=== PATIENT | male | born 1980 | race Caucasian/White ===

== ENCOUNTER → 2021-06-25 | Outpatient (CLI) | payer OTHER ==
--- NOTE | 2021-06-25 10:47 | MR ---
EXAMINATION TYPE: MR lumbar spine wo con DATE OF EXAM: 06/25/2021 COMPARISON: NONE HISTORY: Low back pain down left side TECHNIQUE: T1 and T2 axial and sagittal images of the lumbar spine are submitted. FINDINGS: There is no abnormal signal seen within the visualized spinal cord or paraspinal soft tissu es. Nonspecific heterogeneous marrow signal with multiple suspected vertebral body hemangioma. At L1-2 there is no evidence of degenerative disc disease, disc herniation, canal stenosis or foramin al encroachment. At L2-3 there is no evidence of degenerative disc disease, disc herniation or canal stenosis. No fora kenneth encroachment. At L3-4 there is mild disc desiccation with a small focal central disc protrusion and mild effacement of thecal sac. No canal stenosis or foraminal encroachment. Suggestion of small annular tear. At L4-5 there is disc desiccation with mild broad-based central disc bulging. Neural foramina remain patent. Suggestion of annular tear. At L5-S1 there is degenerative disc disease with no focal herniation, canal stenosis or foraminal enc roachment. IMPRESSION: 1. Multilevel degenerative disc disease with annular tear and broad-based disc bulging or protrusion L4-5. 2. Annular tear and focal small disc central protrusion L3-L4 with mild effacement of thecal sac but no canal stenosis or foraminal encroachment. 3. Vertebral body hemangioma.
== END | disposition home or self-care (01) ==
LOC: RADMRIMAIN 09:02
PROVIDERS: ATTEND Orthopaedic Surgery
DX: M51.37 Other intervertebral disc degeneration, lumbosacral region (principal); M51.26 Other intervertebral disc displacement, lumbar region; D18.09 Hemangioma of other sites
CPT/HCPCS: 72148

== ENCOUNTER → 2021-06-25 | Outpatient (CLI) | payer OTHER ==
--- NOTE | 2021-06-25 09:14 | US ---
EXAMINATION TYPE: US abdomen complete DATE OF EXAM: 06/25/2021 COMPARISON: NONE CLINICAL HISTORY: R10.114 Rt upper quadrant pain. RUQ pain after meals while taking Motrin, symptoms have decreased now; MRI today per patient. EXAM MEASUREMENTS: Liver Length: 12.1 cm Gallbladder Wall: 0.1 cm CBD: 0.3 cm Spleen: 8.2 cm Right Kidney: 10.3 x 5.6 x 4.1 cm Left Kidney: 9.8 x 6.1 x 4.7 cm Pancreas: wnl Liver: wnl Gallbladder: wnl Evidence for sonographic Villalpando's sign: no CBD: wnl Spleen: wnl Right Kidney: No hydronephrosis or masses seen Left Kidney: No hydronephrosis or masses seen Upper IVC: wnl Abd Aorta: wnl The visualized liver is homogenous. The intrahepatic portion of the IVC and visualized abdominal aor ta are within normal limits. There is no evidence of cholelithiasis. Common bile duct is unremarkab le. The visualized portions of the pancreas are homogenous. The spleen is unremarkable. Kidneys ar e symmetric and free of hydronephrosis. No renal lesions are seen. IMPRESSION: No acute findings are evident.
== END | disposition home or self-care (01) ==
LOC: RADUSWWP 08:10
PROVIDERS: ATTEND Family Medicine
DX: R10.11 Right upper quadrant pain (principal)
CPT/HCPCS: 76700

== ENCOUNTER → 2021-08-23 | Outpatient (CLI) | payer OTHER ==
--- NOTE | 2021-08-23 09:12 | P.CON ---
Consult Note - . Consult date: 08/23/21 Assessment/Plan:: HISTORY OF PRESENT ILLNESS: 40 -year-old male as a referral from Dr. Goodman tariq presents today with lower back pain secondary to DDD, disc bulges and facet arthropathy for evaluation. Patient states his lower back pain has been bothering him for 5 years due to an injury then a repeat injury lifting weights. Lower back pain is sharp, stiff in character, 4 out of 10 in intensity and accompanied with spasms occasionally and radiates down the left lower extremity. Pain is provoked with sitting and standing for periods of 30 minutes or more as well as laying supine without changing positions. Pain is relieved with medications (ibuprofen 800 mg), ice, repositioning, physical therapy in June 2021 of 6 sessions, daily home exercise regimen and laying supine with repositioning. PMH: Alopecia, OA PSH: Denies SH: Former smoker (Quit 2013), Rare ETOH use, no illicit drug use FH: Non contributory All: NKDA Meds: See list REVIEW OF ORGAN SYSTEMS: CONSTITUTIONAL: No fevers or chills. No recent weight loss. HEENT: No visual acuity loss, eye pain, difficulties with hearing. No nosebleeds. No difficulty swallowing. RESPIRATORY: Denies any troubles with breathing or dyspnea on exertion. CARDIOVASCULAR: Denies any chest pain, palpitations, or recent heart attacks. GASTROINTESTINAL: Denies fatty food intolerance. Has change in bowel habits and gas bloat. GENITOURINARY: Denies any blood in urine. Has increased urinary frequency. NEUROLOGICAL: + numbness and tingling along the distal extremities. No seizure disorders or headaches. MUSCULOSKELETAL: + back pain SKIN: No skin cancer. No rash. PSYCHIATRIC: Denies current depression or suicidal thoughts. ENDOCRINE: Denies current thyroid disorders. Denies any blood sugar glucose intolerance. HEME/LYMPHATIC: Denies any lumps and bumps around the neck. History of deep venous thrombosis. ALLERGY/IMMUNOLOGY: No immunoglobulin therapy. No immune deficiencies. BREAST: Denies current breast lumps, pain or nipple discharge. Physical Examinations : Constitutional : Cooperative , not in acute distress . HEENT: Neck supple. No Lymphadenopathy. Normal thyroid size . Eyes no ptosis , no icterus, no photophobia . Hearing intact. Normal oropharynx. No Thrush. Respiratory : Chest clear to auscultations bilaterally. No wheezing. No rhonchi. Cardiovascular : Regular rate and rhythm , S1 / S2. No S3 . No S4. Gastrointestinal : Abdomen soft. No tenderness. Bowel sounds x 4. No organomegaly . Genitourinary : Deferred. Neurologic : Cranial nerve II to XII intact. No focal neurological deficits. Psychiatric : alert & oriented x 3. Matching mood & appropriate affect. Judgment & insight intact. Lymphatic No Lymphadenopathy. Musculoskeletal : Cervical Spine Motor strength in the deltoid and biceps: Normal right side. Normal Left side Motor strength biceps and the wrist extensors: Normal right side . Normal left side Motor strength in the triceps muscle: Normal right side. Normal left side Deep tendon reflexes: Normal at the biceps. Normal at Brachioradialis. Normal at triceps Cervical facet loading test: positive bilaterally Spurling test: positive bilaterally Neck distraction test: positive bilaterally Willie sign: positive bilaterally Lumbar spine Motor strength lower extremities ,thigh and legs 5/5 Right side , 5/5 Left side Deep tendon reflexes : Normal Knee Jerk. Normal Ankle Jerk Vertebral body tenderness over L4 Lumbar facet Loading Test: positive Right / positive Left Range of motion of the lumbar spine Flexion 30 degrees, extension 10 degrees Straight Leg Raise test: Left/ Right p ositive at degree Cornelio test: positive right / positive left. Severe tenderness over the Sacroiliac joint on the Right / Left sides Gaenslen test: positive bilaterally Seated flexion test: positive bilaterally. Imaging: MRI without contrast of the lumbar spine from 06/25/21 reviewed Assessment/ Plan : Lumbar Spondylosis, Lumbar facet arthropathy Recommendation of CAMILLAI L4-L5. May need a series of injections, up to 3 within a six-month period, for optimal pain relief. Risks, benefits of procedure discussed and patient verbalized understanding. Denies aspirin or anti- coagulant use or medical history of diabetes. All questions answered. I have spent greater than 50 minutes on patient care today. Dr Kuhn was available by phone for the evaluation of this patient. The time was used to review the medical records including relevant urine studies and Prescription history (MAPs), review of the available imaging, evaluation and examination of the patient, coordination of care with the medical staff and if applicable referring physicians, as well as creation of the medical record
[2021-08-23 09:23] VITALS: BP 134/77; PULSE 62; RESP 18; TEMP 98.3
== END ==
LOC: PNWHC3 08:31
PROVIDERS: ATTEND Specialist
DX: M51.36 Other intervertebral disc degeneration, lumbar region (principal); M47.816 Spondylosis without myelopathy or radiculopathy, lumbar region; M19.90 Unspecified osteoarthritis, unspecified site; Z87.891 Personal history of nicotine dependence
CPT/HCPCS: 99211

== ENCOUNTER → 2021-08-24 | Outpatient (CLI) | payer OTHER ==
--- NOTE | 2021-08-24 19:19 | MR ---
EXAMINATION TYPE: MR knee RT wo con DATE OF EXAM: 08/24/2021 COMPARISON: Outside radiograph 03/15/2021 HISTORY: 40-year-old male and 2 5.561, right knee pain TECHNIQUE: Multiplanar, multisequence imaging of the right knee is performed without IV contrast. FINDINGS: The ACL, PCL, MCL, and LCL complex is intact. There is degenerative signal noted within the body of the medial meniscus. There is an oblique tear o f the posterior horn contacting the tibial surface. Overall medial compartment articular cartilage vo lume is maintained. Partially discoid lateral meniscus without tear. Overall lateral compartment articular cartilage volu me is maintained. Patellofemoral compartment articular cartilage is maintained. Extensor mechanism is intact. There is some edema within the suprapatellar fat pad. Small knee joint effusion without any significant Escobar's cyst. Only trace fluid extends between the tendons of the semimembranosus and medial head gastrocnemius. Normal popliteal artery anatomy and normal muscle bulk. No suspicious bone marrow replacement. IMPRESSION: 1. Oblique undersurface tear posterior horn medial meniscus. Degenerative signal in the body of the m edial meniscus. 2. Partially discoid lateral meniscus without tear. 3. Edema within the suprapatellar fat pad. This is nonspecific but may be seen in the setting of fat pad impingement syndrome. Clinically correlate.
== END | disposition home or self-care (01) ==
LOC: RADMRIMAIN 11:18
PROVIDERS: ATTEND Orthopaedic Surgery
DX: S83.241A Other tear of medial meniscus, current injury, right knee, initial encounter (principal); M23.300 Other meniscus derangements, unspecified lateral meniscus, right knee; M79.4 Hypertrophy of (infrapatellar) fat pad

== ENCOUNTER 2021-09-23 07:57 | Day surgery (SDC) | payer OTHER ==
[2021-09-23 08:25] VITALS: TEMP 98.2
[2021-09-23] MEDS ORDERED: methylPREDNISolone ACETATE 80 MG/ML 1 ML VIAL ONE (08:45)
[2021-09-23] MEDS ORDERED: IOPAMIDOL M200 10 ML VIAL ONE (08:45)
--- NOTE | 2021-09-23 08:59 | P.PCN ---
Date of Procedure: 09/23/21 Procedure(s) Performed: PREOPERATIVE DIAGNOSIS: 1- Lumbar Degenerative Disc Diseases 2-Lumbar Radiculopathy POSTOPERATIVE DIAGNOSIS: Same as preop diagnosis. PROCEDURE 1. Lumbar epidural steroid injection under fluoroscopic guidance at the L4-5 level. (Fluoroscopy imaging was available in radiology department) 2. Lumbar epidurogram. ANESTHESIA: Local with 1% lidocaine 3 ml only. EBL: Minimal PROCEDURE INDICATION: The patient with low back pain and radiculitis symptoms unresponsive to conservative treatment. Fluoroscopy was used to optimize visualization of the needle placement and to maximize safety. PROCEDURE DESCRIPTION / TECHNIQUE: The patient was seen and identified in the preoperative area. Risks, benefits, complications including but not limited to infections ,bleeding ,allergic reaction to the medications ,nerve damage and not complete pain releife , and alternatives were discussed with the patient. The patient agreed to proceed with the procedure and signed the consent. IV was started, and vital signs were stable. Patient was taken to the OR and time out was completed. The patient was placed in the prone position on procedure table and a pillow was placed under the abdomen to reduce lumbar lordosis. The lumbosacral area was prepped and draped in the usual sterile fashion.ere closely monitored during the procedure. Vital signs was monitered during the entire procedure. Using anterior-posterior fluoroscopy, the L4-5 interlaminar space was identified and the skin over this site was marked and then infiltrated with 1% lidocaine subcutaneously. Subsequently, a 20-gauge Tuohy epidural needle was inserted and advanced toward the epidural space using the ``Loss of resistance technique and guided by AP and lateral fluoroscopy. The correct needle position in the epidural space was verified with the injection of 2 mL of the water soluble contrast dye Isovue 200 contrast and observing an excellent epidurogram with the epidural spread of the dye, after negative aspiration for blood and CSF and in the absence of paresthesias. Again after negative aspiration, a 6 ml mixture containing 80 mg of Depo-medrol , and 2 ml of preservative free Normal Saline, and 2 ml of preservative free lidocaine 1% solution was injected and a washout of epidurogram was seen. Needle was withdrawn intact, skin was cleansed, and bandages were applied. COMPLICATIONS: None DISPOSITION / PLANS: The patient was placed in a supine position and transferred to the recovery area in a stable condition for observation. There was no evidence of lower extremity motor or sensory deficit after the procedure. Patient was discharged from the recovery room after meeting discharge criteria. Home discharge instructions were given to the patient by the staff. The patient was reexamined prior to discharge. The patient will schedule a follow up in the clinic in 2-4 weeks.
[2021-09-23 09:18] VITALS: BP 134/82; PULSE 57; RESP 17
--- NOTE | 2021-09-23 12:29 | FL ---
Fluoroscopy HISTORY: Pain 2 seconds fluoroscopy time supplied to the referring clinician. 1 intraoperative C-arm images docume nt the procedure. See dictated report from anesthesia.
== END 2021-09-23 09:30 | disposition home or self-care (01) ==
LOC: ORPAIN 07:57
PROVIDERS: ATTEND Specialist
DX: M51.16 Intervertebral disc disorders with radiculopathy, lumbar region (principal)
CPT/HCPCS: 62323; J1040; Q9966

== ENCOUNTER → 2021-10-21 | Outpatient (CLI) | payer OTHER ==
[2021-10-21 10:11] VITALS: BP 143/83; PULSE 68; RESP 18; TEMP 98.1
--- NOTE | 2021-10-21 10:31 | P.PAINPG ---
PQRS Measure Charge Sheet Comment: A 40 yr old male with a history of severe and chronic low back pain secondary to lumbar degenerative disc diseases and lumbar spondylosis with facet arthropathy presents today for evaluation s/p LESI L4-L5. 70% pain relif x 2 wks s/p procedure. Pain level is 3/10 in intensity, constant, sharp/ shooting towards L side of his back and down the LLE. Pain is provoked by twisting at the waist, lifting above the head. Pain is alleviated with PT completed June 2021, guided stretches at home, medications, laying supine. Interventional pain procedures completed include LESI L4-L5 x 1 Patient is currently on Motrin Patient denies any side effects of the medication(s), denies excessive drowsiness or sleepiness, denies suicidal ideation and reports that the current pain medication is helping to control the pain and improve activities of daily living. Patient denies any motor or sensory deficits. Patient denies any fever or night sweats, denies any change in the bowel movements or urination. Physical Examination: -Constitutional: Cooperative. Not in acute distress . - Neurologic: Cranial nerve II to XII intact. No focal neurological deficits. - Psychatric: Alert & oriented x 3. Matching mood & appropriate affect. Judgment and insight intact. - Musculoskeletal: Cervical spine: Muscle bulk/ tone/ strength in the bilateral upper extremities normal Vertebral body tenderness to palpation over Spurling test positive Distraction test positive Facet loading test positive Thoracic spine Muscle bulk / tone/ strength in the bilateral paraspinal muscles normal Vertebral body tender to palpation over Facet loading test positive Lumbar spine: Motor bulk/ tone/ strength lower extremities , thigh and legs : 5/5 Deep tendon reflexes : Normal Knee Jerk. Normal Ankle Jerk . Vertebral body tenderness to palpation over L4 Lumbar Facet Loading Test positive Straight Leg Raise: positive at 30 degrees right side/ left side Gaenslen's Test positive Sacral spine : Severe tenderness over the Sacroiliac joint: right side / left side Range of motion: Flexion of the lumbar spine <60 degrees Range of motion: Extension of the lumbar spine <20 degrees Gaenslen's Test positive Shilo's Test positive Cornelio test: positive right side / left side Thigh Thrust Test Sacral Thrust Test Assessment and plan: Chronic low back pain secondary to lumbar degenerative disc disease , lumbar spondylosis with facet arthropathy without myelopathy Recommendation of LESI L4-L4 #2. May need a series of injections, up to 3 within a 6 mo period, for optimal pain relief. Risks, benefits of procedure discussed and pt verbalized understanding. Denies anticoagulant use or medical history of diabetes. All patient questions answered MAPS reviewed and it was appropriate. I have spent less than 30 minutes on patient care today. Dr Kuhn was available by phone for the evaluation of this patient. The time was used to review the medical records including relevant urine studies and Prescription history (MAPs), review of the available imaging, evaluation and examination of the patient, coordination of care with the medical staff and if applicable referring physicians, as well as creation of the medical record PQRS Narrative: Hx Alcohol Use (MH) Yes: occasionally Home Medications: Ambulatory Orders Citalopram Hydrobromide [CeleXA] 1 tab PO DAILY 09/23/21 Finaseride 1 mg PO DAILY 09/23/21 Controlled Substance Measures - Controlled Substance Measures Is patient prescribed a controlled substance at discharge?: No
== END ==
LOC: PNWHC3 08:32
PROVIDERS: ATTEND Specialist
DX: M51.36 Other intervertebral disc degeneration, lumbar region (principal); M47.816 Spondylosis without myelopathy or radiculopathy, lumbar region; G89.29 Other chronic pain
CPT/HCPCS: 99211

== ENCOUNTER 2021-12-23 12:12 | Day surgery (SDC) | payer OTHER ==
[~2021-12-23 12:12] MED LIST: LACTATED RINGERS 1,000 ML IV SCH; LIDOCAINE 1% (10MG/ML) FOR IV START INTRADERMA PRN
[2021-12-23 12:57] VITALS: TEMP 97.5
[2021-12-23] MEDS ORDERED: IOPAMIDOL M200 10 ML VIAL ONE (13:50)
[2021-12-23] MEDS ORDERED: methylPREDNISolone ACETATE 80 MG/ML 1 ML VIAL ONE (13:50)
--- NOTE | 2021-12-23 14:00 | P.PCN ---
Date of Procedure: 12/23/21 Procedure(s) Performed: PREOPERATIVE DIAGNOSIS: 1- Lumbar Degenerative Disc Diseases 2-Lumbar Radiculopathy POSTOPERATIVE DIAGNOSIS: Same as preop diagnosis. PROCEDURE 1. Lumbar epidural steroid injection under fluoroscopic guidance at the L4-5 level. (Fluoroscopy imaging was available in radiology department) 2. Lumbar epidurogram. ANESTHESIA: Local with 1% lidocaine 3 ml only. EBL: Minimal PROCEDURE INDICATION: The patient with low back pain and radiculitis symptoms unresponsive to conservative treatment. Fluoroscopy was used to optimize visualization of the needle placement and to maximize safety. PROCEDURE DESCRIPTION / TECHNIQUE: The patient was seen and identified in the preoperative area. Risks, benefits, complications including but not limited to infections ,bleeding ,allergic reaction to the medications ,nerve damage and not complete pain releife , and alternatives were discussed with the patient. The patient agreed to proceed with the procedure and signed the consent. and vital signs were stable. Patient was taken to the OR and time out was completed. The patient was placed in the prone position on procedure table and a pillow was placed under the abdomen to reduce lumbar lordosis. The lumbosacral area was prepped and draped in the usual sterile fashion.ere closely monitored during the procedure. Vital signs was monitered during the entire procedure. Using anterior-posterior fluoroscopy, the L4-5 interlaminar space was identified and the skin over this site was marked and then infiltrated with 1% lidocaine subcutaneously. Subsequently, a 20-gauge Tuohy epidural needle was inserted and advanced toward the epidural space using the ``Loss of resistance technique and guided by AP and lateral fluoroscopy. The correct needle position in the epidural space was verified with the injection of 2 mL of the water soluble contrast dye Isovue 200 contrast and observing an excellent epidurogram with the epidural spread of the dye, after negative aspiration for blood and CSF and in the absence of paresthesias. Again after negative aspiration, a 6 ml mixture containing 80 mg of Depo-medrol , and 2 ml of preservative free Normal Saline, and 2 ml of preservative free lidocaine 1% solution was injected and a washout of epidurogram was seen. Needle was withdrawn intact, skin was cleansed, and bandages were applied. COMPLICATIONS: None DISPOSITION / PLANS: The patient was placed in a supine position and transferred to the recovery area in a stable condition for observation. There was no evidence of lower extremity motor or sensory deficit after the procedure. Patient was discharged from the recovery room after meeting discharge criteria. Home discharge instructions were given to the patient by the staff. The patient was reexamined prior to discharge. The patient will schedule a follow up in the clinic in 2-4 weeks.
[2021-12-23 14:05] VITALS: RESP 18
--- NOTE | 2021-12-23 14:12 | FL ---
EXAMINATION TYPE: FL guided pain mgmt statistic DATE OF EXAM: 12/23/2021 HISTORY: Fluoroscopy time 2 seconds of fluoroscopy provided. IMPRESSION: 1. Fluoroscopy time.
[2021-12-23 14:18] VITALS: BP 126/75; PULSE 52
== END 2021-12-23 14:19 | disposition home or self-care (01) ==
LOC: ORPAIN 12:12
PROVIDERS: ATTEND Specialist
DX: M51.16 Intervertebral disc disorders with radiculopathy, lumbar region (principal); M54.50 Low back pain, unspecified
CPT/HCPCS: 62323; J1040; Q9966

== ENCOUNTER → 2022-01-13 | Outpatient (CLI) | payer OTHER ==
[2022-01-13 09:34] VITALS: BP 134/76; PULSE 76; RESP 18; TEMP 98.6
--- NOTE | 2022-01-13 14:49 | P.PAINPG ---
Objective - Vital Signs Vital signs: Intake & Output 01/12/22 01/13/22 01/13/22 18:59 06:59 18:59 Weight 63.503 kg PQRS Measure Charge Sheet Comment: A 41 yr old male with a history of severe and chronic low back pain secondary to lumbar degenerative disc diseases and lumbar spondylosis with facet arthropathy without myelopathy presents today for evaluation s/p GARCIA L4-L5. Pt states he experienced 50% pain relief x 3 wks s/p procedure. Pain level is currently at 2/10 in intensity, constant, lower lumbar spine, sharp in character w shooting towards the BL buttocks and BLEs. Pain is provoked as high as 5/10 by lifting, sitting/standing for periods of 30 min or more. Pain is alleviated with PT x 6 wks in Jun 2021, home guided exercises, heat, ice, medications (Ibu), repositioning and rest. Interventional pain procedures completed include GARCIA L4-L5 Patient is currently on Ibuprofen Patient denies any side effects of the medication(s), denies excessive drowsiness or sleepiness, denies suicidal ideation and reports that the current pain medication is helping to control the pain and improve activities of daily living. Patient denies any motor or sensory deficits. Patient denies any fever or night sweats, denies any change in the bowel movements or urination. Physical Examination: -Constitutional: Cooperative. Not in acute distress . - Neurologic: Cranial nerve II to XII intact. No focal neurological deficits. - Psychatric: Alert & oriented x 3. Matching mood & appropriate affect. Judgment and insight intact. - Musculoskeletal: Cervical spine: Muscle bulk/ tone/ strength in the bilateral upper extremities normal Vertebral body tenderness to palpation over Spurling test positive Distraction test positive Facet loading test positive Thoracic spine Muscle bulk / tone/ strength in the bilateral paraspinal muscles normal Vertebral body tender to palpation over Facet loading test positive Lumbar spine: Motor bulk/ tone/ strength lower extremities , thigh and legs : 5/5 Deep tendon reflexes : Normal Knee Jerk. Normal Ankle Jerk . Vertebral body tenderness to palpation over BL paraspinal TTP and palpable spasms over L2-L5 Lumbar Facet Loading Test positive Straight Leg Raise: positive at 30 degrees right side/ left side Gaenslen's Test positive Sacral spine : Severe tenderness over the Sacroiliac joint: right side / left side Range of motion: Flexion of the lumbar spine <60 degrees Range of motion: Extension of the lumbar spine <20 degrees Gaenslen's Test positive Shilo's Test positive Cornelio test: positive right side / left side Thigh Thrust Test Sacral Thrust Test Assessment and plan: Chronic low back pain secondary to lumbar degenerative disc disease , lumbar spondylosis with facet arthropathy without myelopathy Recommendation of BL TPIs of L1-S1. May need a series , up to every 2-3 mo, for optimal pain relief. Risks, benefits of procedure discussed and pt verbalized understanding. Admits to anticoagulant use or medical history of diabetes. Protocol for discontinuation/ continuation of medications li proced ure discussed. All patient questions answered I have spent less than 30 minutes on patient care today. Dr Kuhn was available by phone for the evaluation of this patient. The time was used to review the medical records including relevant urine studies and Prescription history (MAPs), review of the available imaging, evaluation and examination of the patient, coordination of care with the medical staff and if applicable referring physicians, as well as creation of the medical record PQRS Narrative: Pain Intensity [Lower Back] 3 Hx Alcohol Use (MH) Yes: occasionally Home Medications: Ambulatory Orders Citalopram Hydrobromide [CeleXA] 10 mg PO DAILY 09/23/21 Finasteride 1 mg PO DAILY 09/23/21 Controlled Substance Measures - Controlled Substance Measures Is patient prescribed a controlled substance at discharge?: No
== END ==
LOC: PNWHC3 09:12
PROVIDERS: ATTEND Specialist
DX: M51.36 Other intervertebral disc degeneration, lumbar region (principal); M47.816 Spondylosis without myelopathy or radiculopathy, lumbar region; G89.29 Other chronic pain; F10.90 Alcohol use, unspecified, uncomplicated
CPT/HCPCS: 99211

== ENCOUNTER 2022-02-15 06:16 | Day surgery (SDC) | payer OTHER ==
[2022-02-15 06:36] VITALS: RESP 16; TEMP 97.3
[2022-02-15] MEDS ORDERED: ACETAMINOPHEN TAB 500 MG TAB ONE (06:38)
[2022-02-15] MEDS ORDERED: ACETAMINOPHEN TAB 500 MG TAB PO ONE (06:39)
[2022-02-15] MEDS ORDERED: ROPIVACAINE 5 MG/ML 20 ML AMPULE ONE (07:03)
[2022-02-15] MEDS ORDERED: TRIAMCINOLONE ACETONIDE 40 MG/ML 1 ML VIAL ONE (07:03)
[2022-02-15] MEDS ORDERED: LACTATED RINGERS 1,000 ML IV SCH (07:15)
--- NOTE | 2022-02-15 07:19 | P.PCN ---
Date of Procedure: 02/15/22 Description of Procedure: Pre and postop diagnosis: Myofascial pain syndrome Procedure: Trigger point injections X 6 Muscle group X left side lumbar paraspinals, and iliocostalis lumborum Surgeon: Glen Kolb Anesthesia: None Complications: None Estimated blood loss: None Specimen removed: None Procedure indications: Patient had a history of myofascial pain syndrome. Patient tried conservative therapy. Came here for intervention procedure for better pain relief. he was scheduled for bilateral lumbar trigger point injection, but on examination, and patient agreed that his pain is only on left side of the lumbar area. no pain on right side of the lumbar area at this time. Procedure description: Patient was seen and identified in the holding area risk benefits competitions alternative discussed with the patient. Patient agreed to proceed for the procedure signed the consent. Patient taken to the procedure area. Timeout was completed. A total number of 6 - trigger point area was marked with a sterile marker. After ChloraPrep used to clean the area. Critical pause was taken. Using 25-gauge 1-1/[address] b[address]. Needle entered in each market site 2 mL of block solution injected at each level. The block solution containing 11 ml of 0.5% preservative-free ropivacaine with Kenlog 40 MG. Needle removed intact skin cleaned and Band-Aid applied. Patient tolerated the procedure well. Disposition: Patient discharge home after meeting the discharge criteria from the recovery. Patient scheduled to follow up with the pain clinic in 4 weeks for follow-up visit.
[2022-02-15 07:31] VITALS: BP 133/83; PULSE 61
== END 2022-02-15 07:36 | disposition home or self-care (01) ==
LOC: ORPAIN 06:16
DX: M79.18 Myalgia, other site (principal); M54.50 Low back pain, unspecified; F41.8 Other specified anxiety disorders; F17.210 Nicotine dependence, cigarettes, uncomplicated; Z79.899 Other long term (current) drug therapy
CPT/HCPCS: 20553; J3301; J2795

== ENCOUNTER → 2022-03-10 | Outpatient (CLI) | payer OTHER ==
[2022-03-10 10:25] VITALS: BP 137/75; PULSE 67; RESP 16; TEMP 98
--- NOTE | 2022-03-10 14:22 | P.PAINPG ---
PQRS Measure Charge Sheet Comment: A 41 yr old male with a history of severe and chronic low back pain secondary to lumbar DDD and spondylosis with facet arthropathy without myelopathy presents today for evaluation s/p L Lumbar TPIs. Pt states he experienced 0% pain relief x 3 wks s/p procedure. Pain level is currently at 3 /10 in intensity, constant, localized in the L lower lumbar spine, achy/ sharp in character w shooting towards the LLE. Pain is provoked by weight bearing activity. Pain is alleviated with PT x 6 wks in Jul 2021, heat, sometimes ice, medications (Ibu), walking and rest. Interventional pain procedures completed include L Lumbar TPIs, ESIs L4-5 x2 Patient is currently on Ibu Patient denies any side effects of the medication(s), denies excessive drowsiness or sleepiness, denies suicidal ideation and reports that the current pain medication is helping to control the pain and improve activities of daily living. Patient denies any motor or sensory deficits. Patient denies any fever or night sweats, denies any change in the bowel movements or urination. Physical Examination: -Constitutional: Cooperative. Not in acute distress . - Neurologic: Cranial nerve II to XII intact. No focal neurological deficits. - Psychatric: Alert & oriented x 3. Matching mood & appropriate affect. Judgment and insight intact. - Musculoskeletal: Cervical spine: Muscle bulk/ tone/ strength in the bilateral upper extremities normal Vertebral body tenderness to palpation over Spurling test positive Distraction test positive Facet loading test positive Thoracic spine Muscle bulk / tone/ strength in the bilateral paraspinal muscles normal Vertebral body tender to palpation over Facet loading test positive Lumbar spine: Motor bulk/ tone/ strength lower extremities , thigh and legs : 5/5 Deep tendon reflexes : Normal Knee Jerk. Normal Ankle Jerk . Vertebral body tenderness to palpation over Lumbar Facet Loading Test positive Straight Leg Raise: positive at 30 degrees right side/ left side Gaenslen's Test positive Sacral spine : Severe tenderness over the Sacroiliac joint: right side / left side Range of motion: Flexion of the lumbar spine <60 degrees Range of motion: Extension of the lumbar spine <20 degrees Gaenslen's Test positive Cornelio test: positive right side / left side Thigh Thrust Test Sacral Thrust Test Assessment and plan: Chronic low back pain secondary to lumbar degenerative disc disease, spondylosis with facet arthropathy without myelopathy Pt did not experience sufficient pain relief s/p procedure. He will continue to follow home pain mgmt remedies and may return to this clinic if the pain intensifies on an as needed basis. All patient questions answered I have spent less than 30 minutes on patient care today. Dr Kuhn was available by phone for the evaluation of this patient. The time was used to review the medical records including relevant urine studies and Prescription history (MAPs), review of the available imaging, evaluation and examination of the patient, coordination of care with the medical staff and if applicable referring physicians, as well as creation of the medical record PQRS Narrative: Hx Alcohol Use (MH) Yes: occasionally Home Medications: Ambulatory Orders Citalopram Hydrobromide [CeleXA] 10 mg PO DAILY 09/23/21 Finasteride 1 mg PO DAILY 09/23/21 Controlled Substance Measures - Controlled Substance Measures Is patient prescribed a controlled substance at discharge?: No
== END ==
LOC: PNWHC3 09:11
PROVIDERS: ATTEND Specialist
DX: M47.816 Spondylosis without myelopathy or radiculopathy, lumbar region (principal); M51.36 Other intervertebral disc degeneration, lumbar region; G89.29 Other chronic pain
CPT/HCPCS: 99211

== ENCOUNTER → 2022-07-01 | Outpatient (CLI) | payer OTHER ==
--- NOTE | 2022-07-01 09:11 | CT ---
EXAMINATION TYPE: CT abdomen w con CT DLP: 365.8 mGycm, Automated exposure control for dose reduction was used. DATE OF EXAM: 07/01/2022 8:37 AM COMPARISON: None CLINICAL INDICATION:Male, 41 years old with history of R10.11 RUQ pain; Right upper quadrant abdomina l pain. TECHNIQUE: Standard CT of the abdomen following the administration of 100 cc of Isovue 300 IV contr ast material and oral contrast. Coronal and sagittal reformats were performed. FINDINGS: LOWER CHEST: Unremarkable ABDOMEN LIVER: Unremarkable GALLBLADDER AND BILE DUCTS: Unremarkable. PANCREAS: Unremarkable. SPLEEN: Unremarkable. ADRENAL GLANDS: Unremarkable. KIDNEYS AND URETERS: No evidence of hydronephrosis or renal calculus. The kidneys enhance symmetrical ly. Contrast demonstrated within both collecting systems on the delayed phase. STOMACH AND BOWEL: Stomach and duodenum are unremarkable. No focal wall thickening or surrounding inf lammatory changes. Enteric contrast reaches the mid small bowel. No evidence of bowel obstruction. PERITONEUM: No evidence of pneumoperitoneum or free fluid. VASCULATURE: No evidence of aortic aneurysm. MUSCULOSKELETAL: No acute osseous abnormalities LYMPH NODES: No gross evidence for lymphadenopathy. SOFT TISSUE/ABDOMINAL WALL: Unremarkable IMPRESSION: Unremarkable abdominal CT.
--- NOTE | 2022-07-01 10:11 | US ---
EXAMINATION TYPE: US scrotum with doppler. Grayscale and color Doppler Duplex imaging performed of t he scrotum. DATE OF EXAM: 07/01/2022 COMPARISON: NONE CLINICAL HISTORY: N50.811 RT TESTICULAR PAIN. Right side pain. No injury. No swelling. EXAM MEASUREMENTS: TESTICLES: Right Testicle: 4.0 x 3.3 x 1.9 cm Left Testicle: 4.3 x 3.5 x 2.1 cm EPIDIDYMIS HEAD: Right Epididymis: 0.8 x 1.2 x 0.8 cm Left Epididymis: 0.8 x 1.0 x 1.0 cm Doppler performed to assess for testicular vascularity; good bilateral color flow and waveforms are s een. There is no evidence of testicular torsion. Presence of hydroceles: Small left Presence of varicoceles: No Right calcification seen = 0.4 x 0.4 cm. Left epididymal head appendix = 0.5 cm IMPRESSION: 1. There is a small left hydrocele. There is a small 4 mm nonspecific extratesticular calcification.
== END | disposition home or self-care (01) ==
LOC: RADCTMAIN 07:45
PROVIDERS: ATTEND Family Medicine
DX: N43.3 Hydrocele, unspecified (principal); R10.11 Right upper quadrant pain
CPT/HCPCS: 93975; 76870; 74160; Q9967

== ENCOUNTER → 2022-10-03 | Outpatient (CLI) | payer OTHER ==
[2022-10-03 08:22] VITALS: BP 147/87; PULSE 55; RESP 18; TEMP 98.1
--- NOTE | 2022-10-03 14:20 | P.PAINPG ---
PQRS Measure Charge Sheet Comment: A 41 yr old male with a history of severe and chronic LBP secondary to lumbar DDD and spondylosis with facet arthropathy without myelopathy presents today for R Testicular pain. Pain level is provoked at 6 /10 in intensity, constant, localized in the lumbar spine, dull/ pulling in character w shooting pain. Pain is provoked by ejaculation and BMs. Pain is alleviated with medications, repositioning and rest. Interventional pain procedures completed include GARCIA L4-L5 x2, Lumbar TPIs Patient is currently on Ibu Patient denies any side effects of the medication(s), denies excessive drowsiness or sleepiness, denies suicidal ideation and reports that the current pain medication is helping to control the pain and improve activities of daily living. Patient denies any motor or sensory deficits. Patient denies any fever or night sweats, denies any change in the bowel movements or urination. Physical Examination: -Constitutional: Cooperative. Not in acute distress . - Neurologic: Cranial nerve II to XII intact. No focal neurological deficits. - Psychatric: Alert & oriented x 3. Matching mood & appropriate affect. Judgment and insight intact. - Musculoskeletal: Cervical spine: Muscle bulk/ tone/ strength in the bilateral upper extremities normal Vertebral body tenderness to palpation over Spurling test positive Distraction test positive Facet loading test positive TTP Thoracic spine Muscle bulk / tone/ strength in the bilateral paraspinal muscles normal Vertebral body tender to palpation over Facet loading test positive TTP Lumbar spine: R groin TTP Motor bulk/ tone/ strength lower extremities , thigh and legs : 5/5 Deep tendon reflexes : Normal Knee Jerk. Normal Ankle Jerk . Vertebral body tenderness to palpation over Hanson Test positive Lumbar Facet Loading Test positive Straight Leg Raise: positive at 30 degrees right side/ left side Gaenslen's Test positive Sacral spine : Severe tenderness over the Sacroiliac joint: right side / left side Range of motion: Flexion of the lumbar spine <60 degrees Range of motion: Extension of the lumbar spine <20 degrees Gaenslen's Test positive right side / left side Cornelio test: positive right side / left side Thigh Thrust Test positive right side / left side Sacral Thrust Test positive right side / left side Assessment and plan: Chronic LBP secondary to lumbar DDD, spondylosis with facet arthropathy without myelopathy Recommendation of R genitofemoral nerve block. May need a series of injections for optimal pain relief. Risks, benefits of procedure discussed and pt verbalized understanding. Admits to anticoagulant use or medical history of diabetes. Protocol for discontinuation/ continuation of medications li procedure discussed. Minimal anesthesia provided, if clinically indicated, consisting of Versed and Fentanyl. All questions answered. I have spent less than 30 minutes on patient care today. Dr Kuhn was available by phone for the evaluation of this patient. The time was used to review the medical records including relevant urine studies and Prescription history (MAPs), review of the available imaging, evaluation and examination of the patient, coordination of care with the medical staff and if applicable referring physicians, as well as creation of the medical record PQRS Narrative: Hx Alcohol Use (MH) Yes: occasionally Home Medications: Ambulatory Orders Citalopram Hydrobromide [CeleXA] 10 mg PO DAILY 09/23/21 Finasteride 1 mg PO DAILY 09/23/21 Controlled Substance Measures - Controlled Substance Measures Is patient prescribed a controlled substance at discharge?: No
== END ==
LOC: PNWHC3 07:38
PROVIDERS: ATTEND Specialist
DX: N50.811 Right testicular pain (principal); M51.36 Other intervertebral disc degeneration, lumbar region; M47.816 Spondylosis without myelopathy or radiculopathy, lumbar region; G89.29 Other chronic pain
CPT/HCPCS: 99211

== ENCOUNTER → 2022-10-03 | Outpatient (CLI) | payer OTHER ==
--- NOTE | 2022-10-03 07:01 | MR ---
MRI CERVICAL SPINE: CLINICAL HISTORY: Neck pain that radiates into left arm for 2 months. Spondylosis per order. TECHNIQUE: Multiplanar, multisequence imaging of the cervical spine is performed without IV contrast. COMPARISON: Outside cervical spine x-ray August 16, 2022 FINDINGS: Sagittal images of the cervical spine show the craniocervical junction to appear within nor mal limits. The cervical and upper thoracic spinal cord shows area of increased signal centrally at C2-C3 disc space level sagittal image 9 measuring approximately 5 mm craniocaudal length. Vertebral alignment is anatomic. The vertebral body and intravertebral disk heights are normal. The bone miracle ow signal intensity is within normal limits. Axial images show C2-C3 and C3-C4 level to appear within normal limits. Axial images at C4-C5 levels show focal left paracentral disc protrusion effacing anterolateral theca l sac up to ventral surface of spinal cord on axial image 30, patent bilateral neural foramina. Axial images at C5-C6 levels with broad-based right paracentral disc protrusion mildly effacing anter ior thecal sac, patent bilateral neural foramina. Axial images at C6-C7 levels are broad-based posterior disc protrusion effacing anterior thecal sac a nd causing mild left greater than right bilateral neural foraminal narrowing. Axial images at C7-T1 level appear within normal limits. IMPRESSION: Multilevel disc herniations mid to lower cervical spine as detailed above. Small focal ce ntral canal prominence or syrinx at C2-C3 level noted.
== END | disposition home or self-care (01) ==
LOC: RADMRIMAIN 06:02
PROVIDERS: ATTEND Nurse Practitioner Family
DX: M47.22 Other spondylosis with radiculopathy, cervical region (principal); M50.121 Cervical disc disorder at C4-C5 level with radiculopathy
CPT/HCPCS: 72141

== ENCOUNTER 2022-10-18 06:56 | Day surgery (SDC) | payer OTHER ==
[2022-10-12 10:53] VITALS: BMI 23.3
[~2022-10-18 06:56] MED LIST changes: -LIDOCAINE 1% (10MG/ML) FOR IV START INTRADERMA PRN
[2022-10-18 07:23] VITALS: RESP 16; TEMP 97.7
[2022-10-18] MEDS ORDERED: ROPIVACAINE 5 MG/ML 20 ML AMPULE ONE (08:05)
--- NOTE | 2022-10-18 08:17 | P.PCN ---
Date of Procedure: 10/18/22 Surgeon: Eugenio Mccarty Pathology: none sent Condition: stable Disposition: PACU Description of Procedure: Name of procedure: Nerve block with ultrasound guidance of the genital branch of the genitofemoral nerve on the right side Diagnoses: Unexplained right testicular pain Anesthesia: Local only with lidocaine 1% Physician: Eugenio Mccarty MD Description of procedure: The patient is a 41-year-old male with a 5 to six-year history of right testicular pain with no precipitating events. The patient had seen multiple urologists and no organic cause for this pain was identified. The patient denies any paresthesia in the area. The pain gets worse with erection. Walking and jogging does not affect the patient's pain, however her bowel movement sometimes increases his pain. The patient was brought into the procedure room and placed in supine position. Ultrasound was used to identify the and to avoid any vessels in the needle track. I then used 22-gauge 1-1/2 inch needle to go through the localized skin with lidocaine 1% and to contact the pubic tubercle on the right side. Then the needle was withdrawn about 1 or 2 mm and 5 mg of ropivacaine 0.5% were injected in the area after negative aspiration. Patient tolerated procedure well.
[2022-10-18 08:30] VITALS: BP 117/76; PULSE 62
== END 2022-10-18 08:30 | disposition home or self-care (01) ==
LOC: ORPAIN 06:56
PROVIDERS: ATTEND Anesthesiology
DX: N50.811 Right testicular pain (principal)
CPT/HCPCS: 55899; J2795

== ENCOUNTER → 2022-11-10 | Outpatient (CLI) | payer OTHER ==
[2022-11-10 08:21] VITALS: BP 141/89; PULSE 64; RESP 15; TEMP 98.2
--- NOTE | 2022-11-10 14:48 | P.PAINPG ---
PQRS Measure Charge Sheet Comment: A 41 yr old male with a history of severe and chronic R groin pain secondary to tendinitis presents today for R genitofemoral NB. Pt states he experienced 80% pain relief s/p procedure. Pain level is provoked at 6 /10 in intensity, constant, localized in the mid cervical spine, dull/ pulling in character w shooting pain to the L shoulder. Pain is provoked by hyperextension, rotation. Pain is alleviated with medications, repositioning and rest. Oswestry axial pain score 26. Interventional pain procedures completed include GARCIA L4-L5 x2, Lumbar TPIs, R genitofemoral NB x1 Patient is currently on Ibu Patient denies any side effects of the medication(s), denies excessive drowsiness or sleepiness, denies suicidal ideation and reports that the current pain medication is helping to control the pain and improve activities of daily living. Patient denies any motor or sensory deficits. Patient denies any fever or night sweats, denies any change in the bowel movements or urination. Physical Examination: -Constitutional: Cooperative. Not in acute distress . - Neurologic: Cranial nerve II to XII intact. No focal neurological deficits. - Psychatric: Alert & oriented x 3. Matching mood & appropriate affect. Judgment and insight intact. - Musculoskeletal: Cervical spine: Muscle bulk/ tone/ strength in the bilateral upper extremities normal Vertebral body tenderness to palpation over C5 Spurling test positive over BL C4-C5, L >R Distraction test positive Facet loading test positive TTP Thoracic spine Muscle bulk / tone/ strength in the bilateral paraspinal muscles normal Vertebral body tender to palpation over Facet loading test positive TTP Lumbar spine: Motor bulk/ tone/ strength lower extremities , thigh and legs : 5/5 Deep tendon reflexes : Normal Knee Jerk. Normal Ankle Jerk . Vertebral body tenderness to palpation over Hanson Test positive Lumbar Facet Loading Test positive Straight Leg Raise: positive at 30 degrees right side/ left side Gaenslen's Test positive Sacral spine : Severe tenderness over the Sacroiliac joint: right side / left side Range of motion: Flexion of the lumbar spine <60 degrees Range of motion: Extension of the lumbar spine <20 degrees Gaenslen's Test positive right side / left side Cornelio test: positive right side / left side Thigh Thrust Test positive right side / left side Sacral Thrust Test positive right side / left side Assessment and plan: Chronic neck pain secondary to DDD, spondylosis and facet arthropathy without myelopathy Recommendation of MICHEAL TFESI C4-C5 #1. May need a series of injections for optimal pain relief. Risks, benefits of procedure discussed and pt verbalized understanding. Admits to anticoagulant use or medical history of diabetes. Protocol for discontinuation/ continuation of medications li procedure discussed. Minimal anesthesia provided, if clinically indicated, consisting of Versed and Fentanyl. All questions answered. I have spent less than 30 minutes on patient care today. Dr Kuhn was available by phone for the evaluation of this patient. The time was used to review the medical records including relevant urine studies and Prescription history (MAPs), review of the available imaging, evaluation and examination of the patient, coordination of care with the medical staff and if applicable referring physicians, as well as creation of the medical record PQRS Narrative: Hx Alcohol Use (MH) Yes: occasionally Home Medications: Ambulatory Orders Citalopram Hydrobromide [CeleXA] 10 mg PO DAILY 09/23/21 Finasteride 1 mg PO DAILY 09/23/21 Ibuprofen 800 mg PO Q8H PRN 10/18/22 Controlled Substance Measures - Controlled Substance Measures Is patient prescribed a controlled substance at discharge?: No
== END ==
LOC: PNWHC3 07:44
PROVIDERS: ATTEND Specialist
DX: M50.321 Other cervical disc degeneration at C4-C5 level (principal); M50.322 Other cervical disc degeneration at C5-C6 level; M47.812 Spondylosis without myelopathy or radiculopathy, cervical region; G89.29 Other chronic pain
CPT/HCPCS: 99211

== ENCOUNTER → 2022-11-29 | Day surgery (SDC) | payer OTHER ==
[2022-11-22 08:58] VITALS: BMI 23.3
== END ==
LOC: ORPAIN 06:30
DX: Z53.8 Procedure and treatment not carried out for other reasons (principal); M54.12 Radiculopathy, cervical region; Z53.09 Procedure and treatment not carried out because of other contraindication

== ENCOUNTER 2023-03-17 11:44 | Day surgery (SDC) | payer OTHER ==
[2023-03-16 09:49] VITALS: BMI 24.2
[2023-03-17] MEDS ORDERED: LACTATED RINGERS 1,000 ML IV SCH (12:39)
[2023-03-17 13:04] VITALS: TEMP 97.9
[2023-03-17] MEDS ORDERED: PROPOFOL 10 MG/ML 20 ML VIAL IV ONE (13:53)
[2023-03-17] MEDS ORDERED: LIDOCAINE 1% INJ 10MG/ML (20 ML MDV) ONE (13:53)
--- NOTE | 2023-03-17 14:03 | P.PCN ---
Date of Procedure: 03/17/23 Procedure(s) Performed: BRIEF HISTORY: Patient is a 42-year-old, pleasant, white male scheduled for an upper endoscopy as a part of evaluation of heartburn and abdominal bloating for the last 8 years duration. He was on omeprazole 20 mg daily with no significant improvement in symptoms.. Continues to have daily symptoms. PROCEDURE PERFORMED: Esophagogastroduodenoscopy with biopsy PREOPERATIVE DIAGNOSIS: Heartburn and abdominal bloating. IV sedation per anesthesia. PROCEDURE: After informed consent was obtained, the patient was brought into the endoscopy unit. IV sedation was administered by Anesthesia under continuous monitoring. Initially the Olympus GIF-140 video endoscope was inserted into the mouth. Esophagus intubated without any difficulty. It was gradually advanced into the stomach and duodenum and carefully examined. The bulb and the second part of the duodenum appeared normal. Abscesses were done from the duodenum to rule out celiac disease. The scope at this time was withdrawn to the stomach, adequately insufflated with air, and upon careful examination, mucosa of the an trum, had mild gastritis and biopsies were done from this area. Mucosa of the body, cardia and the fundus appeared normal. The scope was then withdrawn into the esophagus. The GE junction was located at 41 cm from the incisors. The esophagus appeared normal. There were no erosions or ulcerations seen and the patient tolerated the procedure well. IMPRESSION: 1. Mild antral gastritis. 2. No evidence of esophagitis or peptic ulcer disease. RECOMMENDATIONS: The findings of this examination were discussed with the patient as well as his family. He was advised to follow with the biopsy retur ns. In the meantime that he try [id number] Pepcid 20 mg twice daily and follow antireflux measures. Follow up in office in 6 weeks.
[2023-03-17 14:16] VITALS: RESP 16
[2023-03-17 14:40] VITALS: BP 123/67; PULSE 52
== END 2023-03-17 14:40 | disposition home or self-care (01) ==
LOC: ORWHC2ENDO 11:44
PROVIDERS: ATTEND Internal Medicine Gastroenterology
DX: K21.9 Gastro-esophageal reflux disease without esophagitis (principal); K29.50 Unspecified chronic gastritis without bleeding; F17.200 Nicotine dependence, unspecified, uncomplicated; Z79.899 Other long term (current) drug therapy
CPT/HCPCS: 88305; 43239; J2001; J2704

== ENCOUNTER → 2024-06-28 | Outpatient (CLI) | payer OTHER ==
--- NOTE | 2024-06-29 06:58 | MR ---
EXAMINATION TYPE: MR lumbar spine wo con DATE OF EXAM: 06/28/2024 COMPARISON: MRI lumbar spine June 25, 2021. Lumbar spine x-ray May 24, 2024 HISTORY: Low back pain into left side x6 years, Injured back lifting weights TECHNIQUE: Multiplanar, multisequence imaging of the lumbar spine is performed without IV contrast. FINDINGS: Sagittal images of the lumbar spine show vertebral body heights and alignment to appear sta ble and satisfactory. Persistent disc desiccation L3-L4 and L4-L5 levels. Persistent mild disc space narrowing with posterior annular tear at L4-L5 level. The conus medullaris remains normal in position and signal ending at T12-L1 level. Several scattered osseous hemangiomas are redemonstrated. Axial images at T12-L1 through L2-L3 levels remain within normal limits. Axial images at L3-L4 level redemonstrate stable focal central disc protrusion mildly effacing the an terior thecal sac on axial image 12, bilateral neural foramina remain patent. Axial images at L4-L5 level redemonstrated broad-based central disc protrusion and mild facet arthrop athy bilaterally. Bilateral neural foramina are patent. No significant change from prior. Axial images at L5-S1 level redemonstrate mild facet arthropathy bilaterally. Spinal canal is preserv ed. Paraspinal muscle bulk is maintained. IMPRESSION: Mild multilevel degenerative change in the mid to lower lumbar spine remains present as d etailed above. No significant change from prior MRI. [facility], , 06/29/2024 6:55 AM
== END | disposition home or self-care (01) ==
LOC: RADMRIMAIN 19:04
PROVIDERS: ATTEND Orthopaedic Surgery
DX: M51.35 Other intervertebral disc degeneration, thoracolumbar region (principal); M47.816 Spondylosis without myelopathy or radiculopathy, lumbar region; M62.81 Muscle weakness (generalized)
CPT/HCPCS: 72148

== ENCOUNTER → 2024-08-20 | Outpatient (CLI) | payer OTHER ==
[2024-08-20 08:44] VITALS: BP 141/83; PULSE 80; RESP 16; TEMP 97.3
--- NOTE | 2024-08-20 15:08 | P.PAINPG ---
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 Pain level is provoked at 6 /10 in intensity, constant, localized in the mid lumbar spine, sharp in character w shooting pain to the L thigh. Pain is provoked by laying supine. Pain is alleviated with PT x 6 wks which ended in 2022, physician guided exercises every other day since 2022, medications, repositioning and rest. Oswestry axial pain score 26. Interventional pain procedures completed include GARCIA L4-L5 x2, Lumbar TPIs, R genitofemoral NB x1 Patient is currently on Ibu Patient denies any side effects of the medication(s), denies excessive drowsiness or sleepiness, denies suicidal ideation and reports that the current pain medication is helping to control the pain and improve activities of daily living. Patient denies any motor or sensory deficits. Patient denies any fever or night sweats, denies any change in the bowel movements or urination. Physical Examination: -Constitutional: Cooperative. Not in acute distress . - Neurologic: Cranial nerve II to XII intact. No focal neurological deficits. - Psychatric: Alert & oriented x 3. Matching mood & appropriate affect. Judgment and insight intact. - Musculoskeletal: Cervical spine: Muscle bulk/ tone/ strength in the bilateral upper extremities normal Vertebral body tenderness to palpation over C5 Spurling test positive over BL C4-C5, L >R Distraction test positive Facet loading test positive TTP Thoracic spine Muscle bulk / tone/ strength in the bilateral paraspinal muscles normal Vertebral body tender to palpation over Facet loading test positive TTP Lumbar spine: Motor bulk/ tone/ strength lower extremities , thigh and legs : 5/5 Deep tendon reflexes : Normal Knee Jerk. Normal Ankle Jerk . Vertebral body tenderness to palpation over L5 Hanson Test positive L L4-L5/ L5-S1 Lumbar Facet Loading Test positive Straight Leg Raise: positive at 30 degrees right side/ left side Gaenslen's Test positive Sacral spine : Severe tenderness over the Sacroiliac joint: right side / left side Range of motion: Flexion of the lumbar spine <60 degrees Range of motion: Extension of the lumbar spine <20 degrees Gaenslen's Test positive right side / left side Cornelio test: positive right side / left side Thigh Thrust Test positive right side / left side Sacral Thrust Test positive right side / left side Assessment and plan: Chronic neck pain secondary to radiculopathy, spondylosis and facet arthropathy without myelopathy Recommendation of L TFESI L4-L5/ L5-S1 #1. Risks, benefits of procedure discussed and pt verbalized understanding. Admits to anticoagulant use or medical history of diabetes. Protocol for discontinuation/ continuation of medications li procedure discussed. All questions answered. I have spent less than 30 minutes on patient care today. Dr Kuhn was available by phone for the evaluation of this patient. The time was used to review the medical records including relevant urine studies and Prescription history (MAPs), review of the available imaging, evaluation and examination of the patient, coordination of care with the medical staff and if applicable referring physicians, as well as creation of the medical record - Pain Location Bilateral Lower Back Non-Pharmacological Interventions: Home Exercise, Physical Therapy, Positi on/Reposition, Sitting, Stretching Pharmacological Interventions: Epidural, PRN Medication PQRS Narrative: Blood Pressure 141/83 Pain Intensity [Bilateral 6 Lower Back] Scale Used Numeric (1 - 10) Hx Alcohol Use (MH) No Home Medications: Ambulatory Orders Citalopram Hydrobromide [CeleXA] 10 mg PO DAILY 09/23/21 Finasteride 1 mg PO DAILY 09/23/21 Ibuprofen 800 mg PO Q8H PRN 10/18/22 Amitriptyline HCl 25 mg PO HS 08/20/24 Controlled Substance Measures - Controlled Substance Measures Is patient prescribed a controlled substance at discharge?: No
== END ==
LOC: PNWHC3 08:32
PROVIDERS: ATTEND Specialist
DX: M47.22 Other spondylosis with radiculopathy, cervical region (principal); G89.29 Other chronic pain
CPT/HCPCS: 99211

== ENCOUNTER → 2024-09-18 | Outpatient (CLI) | payer OTHER ==
[2024-09-18 08:16] VITALS: BP 132/85; PULSE 83; RESP 19
--- NOTE | 2024-09-18 16:01 | P.PAINPG ---
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 Pain level is provoked at 5-6 /10 in intensity, constant, localized in the mid lumbar spine, sharp in character w shooting pain to the L thigh. Pain is provoked by laying supine. Pain is alleviated with PT x 6 wks which ended in 2022, physician guided exercises every other day since 2022, medications, repositioning and rest. Oswestry axial pain score 26. Interventional pain procedures completed include GARCIA L4-L5 x2, Lumbar TPIs, R genitofemoral NB x1 Patient is currently on Ibu Patient denies any side effects of the medication(s), denies excessive drowsiness or sleepiness, denies suicidal ideation and reports that the current pain medication is helping to control the pain and improve activities of daily living. Patient denies any motor or sensory deficits. Patient denies any fever or night sweats, denies any change in the bowel movements or urination. Physical Examination: -Constitutional: Cooperative. Not in acute distress . - Neurologic: Cranial nerve II to XII intact. No focal neurological deficits. - Psychatric: Alert & oriented x 3. Matching mood & appropriate affect. Judgment and insight intact. - Musculoskeletal: Cervical spine: Muscle bulk/ tone/ strength in the bilateral upper extremities normal Vertebral body tenderness to palpation over C5 Spurling test positive over BL C4-C5, L >R Distraction test positive Facet loading test positive TTP Thoracic spine Muscle bulk / tone/ strength in the bilateral paraspinal muscles normal Vertebral body tender to palpation over Facet loading test positive TTP Lumbar spine: Motor bulk/ tone/ strength lower extremities , thigh and legs : 5/5 Deep tendon reflexes : Normal Knee Jerk. Normal Ankle Jerk . Vertebral body tenderness to palpation over L4 Hanson Test positive L3-L5 L> R Lumbar Facet Loading Test positive Straight Leg Raise: positive at 30 degrees right side/ left side Gaenslen's Test positive Sacral spine : Severe tenderness over the Sacroiliac joint: right side / left side Range of motion: Flexion of the lumbar spine <60 degrees Range of motion: Extension of the lumbar spine <20 degrees Gaenslen's Test positive right side / left side Cornelio test: positive right side / left side Thigh Thrust Test positive right side / left side Sacral Thrust Test positive right side / left side Assessment and plan: Chronic neck pain secondary to radiculopathy, spondylosis and facet arthropathy without myelopathy Recommendation of GARCIA L3-L4 #1. Risks, benefits of procedure discussed and pt verbalized understanding. Admits to anticoagulant use or medical history of diabetes. Protocol for discontinuation/ continuation of medications li procedure discussed. All questions answered. I have spent less than 30 minutes on patient care today. Dr Kuhn was available by phone for the evaluation of this patient. The time was used to review the medical records including relevant urine studies and Prescription history (MAPs), review of the available imaging, evaluation and examination of the patient, coordination of care with the medical staff and if applicable referring physicians, as well as creation of the medical record - Pain Location Lower Back Pharmacological Interventions: Epidural, Medication PQRS Narrative: Hx Alcohol Use (MH) No Home Medications: Ambulatory Orders Citalopram Hydrobromide [CeleXA] 10 mg PO DAILY 09/23/21 Finasteride 1 mg PO DAILY 09/23/21 Ibuprofen 800 mg PO Q8H PRN 10/18/22 Amitriptyline HCl 25 mg PO HS 08/20/24 Controlled Substance Measures - Controlled Substance Measures Is patient prescribed a controlled substance at discharge?: No
== END ==
LOC: PNWHC3 07:58
PROVIDERS: ATTEND Specialist
DX: M47.22 Other spondylosis with radiculopathy, cervical region (principal)
CPT/HCPCS: 99212

== ENCOUNTER → 2024-10-15 | Day surgery (SDC) | payer OTHER ==
[~2024-10-15] MED LIST changes: +IOPAMIDOL M200 10 ML VIAL ONE; +TRIAMCINOLONE ACETONIDE 40 MG/ML 1 ML VIAL ONE
[2024-10-15 06:30] VITALS: RESP 16; TEMP 97
--- NOTE | 2024-10-15 07:41 | P.PCN ---
Date of Procedure: 10/15/24 Description of Procedure: Diagnosis: Lumbar DDD Procedure: Inter-Laminar Lumbar Epidural Steroid Injection under biplanar fluoroscopy at the L3-4 level and the left paramedian approach Surgeon: Eugenio Mccarty MD Anesthesia: Local only with: 1% Lidocaine Complications: None Estimated blood loss: None Specimens removed: none. Fluoroscopic image: Saved to patient EMR. Indications for Procedure: The patient has been suffering from lower back pain and leg pain. Inadequate pain control with pharmacologic regimen. Came here for lumbar epidural steroid injection for better pain control. Procedure and Findings: The patient was seen and examined in the holding area. The written informed consent was obtained after explaining the risks, benefits, and alternatives of the procedure to the patient. The patient was brought to the procedure room and was placed in the prone position on the operating room table. A pillow was placed under the abdomen to reduce lumbar lordosis. The anesthesia was started as mentioned above and monitoring was done with noninvasive blood pressure cuff, EKG and pulse oximetry. The skin preparation was done with ChloraPrep and draping was done in usual sterile fashion. Sterile technique was observed throughout the procedure. Under fluoroscopic guidance, the [L3-L4] inter-laminar space was identified. [ 1] ml of 1% Lidocaine was injected with a 25 gauge needle to achieve adequate local anesthesia of the skin and subcutaneous tissue. A 20 gauge, 3.5 inch Tuohy type epidural needle was placed and advanced up to the epidural space using loss of resistance technique and fluoroscopic guidance. No paresthesia was noted. A negative aspiration was confirmed and then 2 ml Isovue was injected. A good dye spread was seen in the epidural space and it was negative for any intrathecal, intraneural or intravascular spread. A total of 8 ml solution containing Kenalog 80 mg and 2 ml of 1% preservative-free (PF) Lidocaine with 5 mls of preservative-free Normal Saline was injected slowly with intermittent aspiration. The needle was removed intact, area was cleaned and bandage was applied. Disposition : The patient tolerated the procedure very well. The patient was transferred to the recovery room and remained stable until discharged home. The patient was given detailed discharge instructions for infection, bleeding, headache , leg weakness, and increased pain at the injection site, and was advised to seek immediate medical attention should significant side effects develop. The patient will be followed up with our [facility] within 4 weeks for follow-up visit. I suggest few diagnostic procedures in the future since the patient has most of his pain in the axial area on the left side of his lumbar spine namely left sacroiliac joint steroid injection and may be lumbar facet medial branch block.
[2024-10-15 07:54] VITALS: BP 127/86; PULSE 68
--- NOTE | 2024-10-15 09:23 | FL ---
EXAMINATION TYPE: FL guided pain mgmt statistic DATE OF EXAM: 10/15/2024 8:06 AM COMPARISON: Pre Operative Images if available both CT/MRI or plain film CLINICAL INDICATION: Male, 43 years old with history of LESI; TECHNIQUE: FL guided pain mgmt statistic, multiple fluoroscopic images provided for procedure. DAP: 0.77946 mGym2 Gycm2 uGym2 cGycm2 or equivalent. FINDINGS: Fluoroscopic images during injection for pain management demonstrate multilevel degeneration changes throughout the spine. No evidence for fracture. No acute process identified. IMPRESSION: 1. No evidence for intraoperative complication. 2. Please see the operative/procedural note for further details. [facility], , 10/15/2024 9:21 AM
== END ==
LOC: ORPAIN 06:12
PROVIDERS: ATTEND Anesthesiology
DX: M51.369 Other intervertebral disc degeneration, lumbar region without mention of lumbar back pain or lower extremity pain (principal)
CPT/HCPCS: 62323; J3301; Q9966

== ENCOUNTER → 2024-11-06 | Outpatient (CLI) | payer OTHER ==
[2024-11-06 08:01] VITALS: BP 135/87; PULSE 77; RESP 16; TEMP 97.5
--- NOTE | 2024-11-06 14:14 | P.PAINPG ---
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 Pt states he experienced 50% pain relief x 3 wks s/p procedure. Pain level is provoked at 2-6 /10 in intensity, constant, localized in the mid lumbar spine, sharp in character w shooting pain to the L knee and calf Pain is provoked by laying supine. Pain is alleviated with PT x 6 wks which ended in 2022, physician guided exercises every other day since 2022, medications, repositioning and rest. Oswestry axial pain score 26. Interventional pain procedures completed include GARCIA L4-L5 x2, Lumbar TPIs, R genitofemoral NB x1 Patient is currently on Ibu, Excedrin Patient denies any side effects of the medication(s), denies excessive drowsiness or sleepiness, denies suicidal ideation and reports that the current pain medication is helping to control the pain and improve activities of daily living. Patient denies any motor or sensory deficits. Patient denies any fever or night sweats, denies any change in the bowel movements or urination. Physical Examination: -Constitutional: Cooperative. Not in acute distress . - Neurologic: Cranial nerve II to XII intact. No focal neurological deficits. - Psychatric: Alert & oriented x 3. Matching mood & appropriate affect. Judgment and insight intact. - Musculoskeletal: Cervical spine: Muscle bulk/ tone/ strength in the bilateral upper extremities normal Vertebral body tenderness to palpation over C5 Spurling test positive over BL C4-C5, L >R Distraction test positive Facet loading test positive TTP Thoracic spine Muscle bulk / tone/ strength in the bilateral paraspinal muscles normal Vertebral body tender to palpation over Facet loading test positive TTP Lumbar spine: Motor bulk/ tone/ strength lower extremities , thigh and legs : 5/5 Deep tendon reflexes : Normal Knee Jerk. Normal Ankle Jerk . Vertebral body tenderness to palpation over L5 Hanson Test positive L3-L5 L> R Lumbar Facet Loading Test positive Straight Leg Raise: positive at 30 degrees right side/ left side Gaenslen's Test positive Sacral spine : Severe tenderness over the Sacroiliac joint: right side / left side Range of motion: Flexion of the lumbar spine <60 degrees Range of motion: Extension of the lumbar spine <20 degrees Gaenslen's Test positive right side / left side Cornelio test: positive right side / left side Thigh Thrust Test positive right side / left side Sacral Thrust Test positive right side / left side Assessment and plan: Chronic neck pain secondary to radiculopathy, spondylosis and facet arthropathy without myelopathy Recommendation of L TFESI L4-L5, L5-S1 #1. May benefit from L SI and/or BL MBBs. Risks, benefits of procedure discussed and pt verbalized understanding. Protocol for discontinuation/ continuation of medications li procedure discussed. All questions answered. I have spent less than 30 minutes on patient care today. Dr Kuhn was available by phone for the evaluation of this patient. The time was used to r eview the medical records including relevant urine studies and Prescription history (MAPs), review of the available imaging, evaluation and examination of the patient, coordination of care with the medical staff and if applicable referring physicians, as well as creation of the medical record PQRS Narrative: Hx Alcohol Use (MH) No Home Medications: Ambulatory Orders Citalopram Hydrobromide [CeleXA] 10 mg PO DAILY 09/23/21 Finasteride 1 mg PO DAILY 09/23/21 Ibuprofen 800 mg PO Q8H PRN 10/18/22 Amitriptyline HCl 25 mg PO HS 08/20/24 Controlled Substance Measures - Controlled Substance Measures Is patient prescribed a controlled substance at discharge?: No
== END ==
LOC: PNWHC3 07:44
PROVIDERS: ATTEND Anesthesiology
DX: M47.26 Other spondylosis with radiculopathy, lumbar region (principal)
CPT/HCPCS: 99211